=== PATIENT | male | born 1975 | race Caucasian/White ===

== ENCOUNTER 2018-03-31 09:22 | Inpatient (IN) | payer MEDICAID ==
[~2018-03-31] VITALS: Ht 170.2 cm; Wt 118.2 kg
[~2018-03-31 09:22] MED LIST: DIVA-78 PO; SULF1TAB42 PO
[2018-03-31 09:35] VITALS: BP 154/85
[2018-03-31] MEDS ORDERED: MAG HYDROX/AL HYDROX/SIMETH ES 30 ML SUSPENSION UDCUP PO PRN (10:30)
[2018-03-31] MEDS ORDERED: ZOLPIDEM TARTRATE 10 MG TABLET PO PRN (10:30)
[2018-03-31] MEDS ORDERED: LOPERAMIDE HCL 2 MG CAPSULE PO PRN (10:30)
[2018-03-31] MEDS ORDERED: CloNIDine HCL 0.1 MG TABLET PO PRN (10:45)
[2018-03-31] MEDS ORDERED: GuaiFENesin/D-METHORPHAN [SUGAR-FREE] 200-20MG/10 ML SYRUP UDCUP PO PRN (10:45)
[2018-03-31] MEDS ORDERED: ACETAMINOPHEN 325 MG TABLET PO PRN (10:45)
[2018-03-31] MEDS ORDERED: NICOTINE 14 MG/24 HOUR PATCH TD PRN (10:45)
[2018-03-31] MEDS ORDERED: PETROLATUM,WHITE 71 GM JELLY TP PRN (10:45)
[2018-03-31] MEDS ORDERED: PNEUMOCOCCAL VACCINE POLYVALENT 0.5 ML VIAL [PPSV23] IM ONE (10:45)
[2018-03-31] MEDS ORDERED: ONDANSETRON HCL 4 MG TABLET PO PRN (10:45)
[2018-03-31] MEDS ORDERED: MAGNESIUM HYDROXIDE SUSPENSION 30 ML UDCUP PO PRN (10:45)
[2018-03-31] MEDS ORDERED: DOCUSATE SODIUM 100 MG CAPSULE PO PRN (10:45)
[2018-03-31] MEDS ORDERED: ALBUTEROL SULFATE HFA 90 MCG/PUFF 8 GM INHALER IH PRN (10:45)
[2018-03-31 11:05] VITALS: BP 116/83
[2018-03-31 16:06] VITALS: BP 127/84
[2018-03-31] MEDS: LORazepam 2 MG TABLET PO PRN (16:55)
[2018-04-01 01:46] VITALS: BP 138/87
[2018-04-01 07:57] LABS: BASOPHILS % (AUTO) 0.7 % (0.0-2.0); EOSINOPHILS % (AUTO) 2.4 % (1.0-6.0); HEMATOCRIT 42.6 % (41-53); HEMOGLOBIN 15.2 g/dL (13.5-17.5); LYMPHOCYTES % (AUTO) 27.5 % (22.0-44.0); MEAN CORPUSCULAR HEMOGLOBIN 32.7 pg (26.0-34.0); MEAN CORPUSCULAR HGB CONC 35.6 G/dL (31.0-37.0); MEAN CORPUSCULAR VOLUME 92 fL (80-100); MONOCYTES # (AUTO) 0.8 K/uL (0.1-1.0); MONOCYTES % (AUTO) 10.8 % (2.0-9.0); NEUTROPHILS # (AUTO) 4.2 K/uL (1.8-7.7); NEUTROPHILS % (AUTO) 58.6 % (40.0-70.0); PLATELET COUNT (AUTO) 248 K/uL (150-450); RED BLOOD CELL COUNT(AUTO) 4.65 MIL/uL (4.50-5.90); RED CELL DISTRIBUTION WIDTH 13.7 % (11.5-14.5)
[2018-04-01 08:00] VITALS: BP 116/84
[2018-04-01 08:38] LABS: ANION GAP 4 mmol/L (8-16); CARBON DIOXIDE 29 mmol/L (22-29); CHLORIDE 104 mmol/L (98-107); CREATININE 0.85 mg/dL (0.60-1.30); GLUCOSE,RANDOM 87 mg/dL (70-110); SODIUM SERUM 137 mmol/L (136-145); UREA NITROGEN, BLOOD 14 mg/dL (7-18)
[2018-04-01 08:39] LABS: ALANINE AMINOTRANSFERASE 29 U/L (12-78); ALKALINE PHOSPHATASE 74 U/L (46-116); ASPARTATE AMINOTRANSFERASE 13 U/L (15-37); BILIRUBIN,TOTAL 0.6 mg/dL (0.1-1.0); CALCIUM, TOTAL 8.2 mg/dL (8.8-10.5); CHOL/HDL RATIO 3.7 (4.2-7.3); CHOLESTEROL 110 mg/dL (131-200); FREE T4 (FREE THYROXINE) 1.08 ng/dL (0.76-1.46); GLOMERULAR FILTR. RATE CALC > 60 mL/min (>60); HDL CHOLESTEROL 30 mg/dL (40-60); LDL CHOL (CALC.) 62 mg/dL (0-130); THYROID STIMULATING HORMONE 0.92 uIU/mL (0.36-3.74); TOTAL PROTEIN, SERUM 6.2 g/dL (6.4-8.2); TRIGLYCERIDES 90 mg/dL (15-150)
[2018-04-01 08:43] LABS: HEMOGLOBIN A1C 5.2 % (4.5-6.2)
[2018-04-01] MEDS ORDERED: ARIPiprazole 10 MG TABLET PO SCH (09:00)
[2018-04-01 16:15] VITALS: BP 122/89
[2018-04-01] MEDS: LORazepam 2 MG TABLET PO PRN (19:03)
[2018-04-02 06:11] VITALS: BP 128/88
[2018-04-02 08:13] VITALS: BP 113/69
[2018-04-02] MEDS: ARIPiprazole 15 MG TABLET PO SCH (08:55)
[2018-04-02] MEDS: LORazepam 2 MG TABLET PO PRN ×3 (08:55→21:28)
[2018-04-02 16:31] VITALS: BP 115/65
[2018-04-03 05:44] VITALS: BP 126/79
[2018-04-03 08:00] VITALS: BP 127/77
[2018-04-03] MEDS: ARIPiprazole 15 MG TABLET PO SCH (08:59)
[2018-04-03] MEDS ORDERED: ARIP10TA8 PO (12:29)
== END 2018-04-03 12:40 | disposition home or self-care (01) | DRG 750 ==
LOC: B2S 10:27 → B3A 11:47
PROVIDERS: ADMIT Psychiatry & Neurology Psychiatry; ATTEND Psychiatry & Neurology Psychiatry
DX: F25.0 Schizoaffective disorder, bipolar type (principal); F29 Unspecified psychosis not due to a substance or known physiological condition; B18.2 Chronic viral hepatitis C; F12.90 Cannabis use, unspecified, uncomplicated; R45.87 Impulsiveness; Z91.19 Patient's noncompliance with other medical treatment and regimen; Z91.5 Personal history of self-harm; J45.909 Unspecified asthma, uncomplicated; I10 Essential (primary) hypertension; Z59.0 Homelessness; Z88.6 Allergy status to analgesic agent; F17.200 Nicotine dependence, unspecified, uncomplicated
CPT/HCPCS: 83036; 84439; 84443; 90732

== ENCOUNTER 2018-04-07 10:47 | Inpatient (IN) | payer MEDICAID ==
[~2018-04-07] VITALS: Ht 170.2 cm; Wt 117.9 kg
[~2018-04-07 10:47] MED LIST changes: +ARIP10TA8 PO; -DIVA-78 PO; -SULF1TAB42 PO
[2018-04-07 11:48] VITALS: BP 116/77
[2018-04-07 12:21] VITALS: BP 129/76
[2018-04-07] MEDS: LORazepam 2 MG TABLET PO PRN (13:31)
[2018-04-07] MEDS: HALOPERIDOL 5 MG TABLET PO PRN (13:31)
[2018-04-07] MEDS ORDERED: MAG HYDROX/AL HYDROX/SIMETH ES 30 ML SUSPENSION UDCUP PO PRN (15:45)
[2018-04-07] MEDS ORDERED: GuaiFENesin/D-METHORPHAN [SUGAR-FREE] 200-20MG/10 ML SYRUP UDCUP PO PRN (15:45)
[2018-04-07] MEDS ORDERED: NICOTINE 14 MG/24 HOUR PATCH TD PRN (15:45)
[2018-04-07] MEDS ORDERED: LOPERAMIDE HCL 2 MG CAPSULE PO PRN (15:45)
[2018-04-07] MEDS ORDERED: PETROLATUM,WHITE 71 GM JELLY TP PRN (15:45)
[2018-04-07] MEDS ORDERED: ALBUTEROL SULFATE HFA 90 MCG/PUFF 8 GM INHALER IH PRN (15:45)
[2018-04-07] MEDS ORDERED: ONDANSETRON HCL 4 MG TABLET PO PRN (15:45)
[2018-04-07] MEDS ORDERED: CloNIDine HCL 0.1 MG TABLET PO PRN (15:45)
[2018-04-07] MEDS ORDERED: ACETAMINOPHEN 325 MG TABLET PO PRN (15:45)
[2018-04-07] MEDS ORDERED: DOCUSATE SODIUM 100 MG CAPSULE PO PRN (15:45)
[2018-04-07] MEDS ORDERED: MAGNESIUM HYDROXIDE SUSPENSION 30 ML UDCUP PO PRN (15:45)
[2018-04-07 16:00] VITALS: BP 107/66
[2018-04-08 00:19] VITALS: BP 139/89
[2018-04-08] MEDS: LORazepam 2 MG TABLET PO PRN ×3 (00:24→14:28)
[2018-04-08] MEDS: ZOLPIDEM TARTRATE 10 MG TABLET PO PRN ×2 (00:24→20:39)
[2018-04-08 07:55] LABS: BASOPHILS % (AUTO) 0.7 % (0.0-2.0); EOSINOPHILS % (AUTO) 2.5 % (1.0-6.0); HEMATOCRIT 44.1 % (41-53); HEMOGLOBIN 15.9 g/dL (13.5-17.5); LYMPHOCYTES # (AUTO) 2.1 K/uL (1.0-4.8); LYMPHOCYTES % (AUTO) 39.9 % (22.0-44.0); MEAN CORPUSCULAR HEMOGLOBIN 32.9 pg (26.0-34.0); MEAN CORPUSCULAR HGB CONC 35.9 G/dL (31.0-37.0); MEAN CORPUSCULAR VOLUME 92 fL (80-100); MONOCYTES # (AUTO) 0.5 K/uL (0.1-1.0); MONOCYTES % (AUTO) 10.2 % (2.0-9.0); NEUTROPHILS # (AUTO) 2.5 K/uL (1.8-7.7); NEUTROPHILS % (AUTO) 46.7 % (40.0-70.0); PLATELET COUNT (AUTO) 176 K/uL (150-450); RED BLOOD CELL COUNT(AUTO) 4.82 MIL/uL (4.50-5.90); RED CELL DISTRIBUTION WIDTH 13.6 % (11.5-14.5)
[2018-04-08 08:02] VITALS: BP 132/78
[2018-04-08 08:38] LABS: AMPHET/METH SCREEN,URINE POSITIVE (NEGATIVE); BARBITURATE SCREEN, URINE NEGATIVE (NEGATIVE); BENZODIAZEPINES SCREEN,URINE NEGATIVE (NEGATIVE); CANNABINOID SCREEN,URINE POSITIVE (NEGATIVE); COCAINE SCREEN,URINE NEGATIVE (NEGATIVE); METHADONE SCREEN, URINE NEGATIVE (NEGATIVE); OPIATE SCREEN,URINE POSITIVE (NEGATIVE)
[2018-04-08 08:41] LABS: PHENCYCLIDINE SCREEN,URINE NEGATIVE (NEGATIVE)
[2018-04-08] MEDS: HALOPERIDOL 5 MG TABLET PO PRN ×2 (08:42→14:28)
[2018-04-08] MEDS: ARIPiprazole 15 MG TABLET PO SCH (08:42)
[2018-04-08 08:52] LABS: ALANINE AMINOTRANSFERASE 27 U/L (12-78); ALBUMIN 3.1 g/dL (3.4-5.0); ALKALINE PHOSPHATASE 62 U/L (46-116); ANION GAP 6 mmol/L (8-16); ASPARTATE AMINOTRANSFERASE 12 U/L (15-37); BILIRUBIN,TOTAL 0.6 mg/dL (0.1-1.0); CALCIUM, TOTAL 8.1 mg/dL (8.8-10.5); CARBON DIOXIDE 29 mmol/L (22-29); CHLORIDE 103 mmol/L (98-107); CREATININE 0.87 mg/dL (0.60-1.30); FREE T4 (FREE THYROXINE) 1.05 ng/dL (0.76-1.46); GLOMERULAR FILTR. RATE CALC > 60 mL/min (>60); GLUCOSE,RANDOM 86 mg/dL (70-110); HDL CHOLESTEROL 30 mg/dL (40-60); SODIUM SERUM 138 mmol/L (136-145); TOTAL PROTEIN, SERUM 6.2 g/dL (6.4-8.2); TRIGLYCERIDES 87 mg/dL (15-150); UREA NITROGEN, BLOOD 14 mg/dL (7-18)
[2018-04-08 08:55] LABS: APPEARANCE,URINE TURBID (CLEAR); GLUCOSE, URINE (UA) NEGATIVE (NEGATIVE); KETONES,URINE 40 mg/dL (NEGATIVE); LEUKOCYTE ESTERASE ,URINE NEGATIVE (NEGATIVE); NITRATE,URINE NEGATIVE (NEGATIVE); OCCULT BLOOD,URINE MODERATE (NEGATIVE); PH,URINE 5.5 (5.0-8.0); PROTEIN,URINE POS 1+ (NEGATIVE)
[2018-04-08 08:56] LABS: BILIRUBIN,URINE PRELIM. POSITIVE (NEGATIVE)
[2018-04-08] MEDS ORDERED: ARIPiprazole 15 MG TABLET PO SCH (09:00)
[2018-04-08 09:03] LABS: HEMOGLOBIN A1C 5.1 % (4.5-6.2)
[2018-04-08 09:05] LABS: CHOL/HDL RATIO 3.9 (4.2-7.3); CHOLESTEROL 116 mg/dL (131-200); LDL CHOL (CALC.) 69 mg/dL (0-130)
[2018-04-08 09:07] LABS: AMORPHOUS SEDIMENT,UR Many /LPF (None Seen); BACTERIA,URINE Few /HPF (None Seen); CALCIUM OXALATE CRYSTALS,UR Few /LPF (None Seen); RBC,URINE None Seen /HPF (0-2); SQUAMOUS EPITHELIAL CELL,UR Rare /LPF (None Seen); WBC,URINE None Seen /HPF (0-5)
[2018-04-08 16:01] VITALS: BP 109/64
[2018-04-09] MEDS: HALOPERIDOL 5 MG TABLET PO PRN ×3 (00:01→17:39)
[2018-04-09] MEDS: LORazepam 2 MG TABLET PO PRN ×3 (00:02→17:39)
[2018-04-09 00:05] VITALS: BP 137/94
[2018-04-09 08:00] VITALS: BP 114/80
[2018-04-09] MEDS: ARIPiprazole 15 MG TABLET PO SCH (08:22)
[2018-04-09 16:07] VITALS: BP 124/83
[2018-04-10 01:31] VITALS: BP 134/78
[2018-04-10 08:00] VITALS: BP 112/66
[2018-04-10] MEDS: ARIPiprazole 15 MG TABLET PO SCH (08:14)
[2018-04-10] MEDS: LORazepam 2 MG TABLET PO PRN ×2 (10:05→16:48)
[2018-04-10] MEDS ORDERED: ARIP15TA2 PO (11:50)
[2018-04-10] MEDS: BENZTROPINE MESYLATE 2 MG TABLET PO SCH ×2 (12:13→16:48)
[2018-04-10 15:57] VITALS: BP 122/72
[2018-04-10 19:22] VITALS: BP 122/72
[2018-04-10] MEDS: ZOLPIDEM TARTRATE 10 MG TABLET PO PRN (20:39)
[2018-04-10] MEDS ORDERED: MAG HYDROX/AL HYDROX/SIMETH 30 ML SUSP UDCUP PO PRN (21:30)
[2018-04-11 00:23] VITALS: BP 137/88
[2018-04-11 02:29] VITALS: BP 122/84
[2018-04-11] MEDS: TraMADol HCL 50 MG TABLET PO PRN ×2 (03:03→11:13)
[2018-04-11 08:04] VITALS: BP 144/91
[2018-04-11] MEDS: BENZTROPINE MESYLATE 2 MG TABLET PO SCH ×2 (08:49→16:16)
[2018-04-11] MEDS: LORazepam 2 MG TABLET PO PRN ×2 (08:49→16:16)
[2018-04-11] MEDS: HALOPERIDOL 5 MG TABLET PO PRN (08:49)
[2018-04-11] MEDS: ARIPiprazole 15 MG TABLET PO SCH (08:49)
[2018-04-11 09:14] LABS: AMPHET/METH SCREEN,URINE NEGATIVE (NEGATIVE); BARBITURATE SCREEN, URINE NEGATIVE (NEGATIVE); BENZODIAZEPINES SCREEN,URINE NEGATIVE (NEGATIVE); CANNABINOID SCREEN,URINE NEGATIVE (NEGATIVE); COCAINE SCREEN,URINE NEGATIVE (NEGATIVE); METHADONE SCREEN, URINE NEGATIVE (NEGATIVE); OPIATE SCREEN,URINE NEGATIVE (NEGATIVE); PHENCYCLIDINE SCREEN,URINE NEGATIVE (NEGATIVE)
[2018-04-11 09:22] LABS: APPEARANCE,URINE CLOUDY (CLEAR); BILIRUBIN,URINE NEGATIVE (NEGATIVE); GLUCOSE, URINE (UA) NEGATIVE (NEGATIVE); KETONES,URINE NEGATIVE (NEGATIVE); LEUKOCYTE ESTERASE ,URINE MODERATE (NEGATIVE); NITRATE,URINE NEGATIVE (NEGATIVE); OCCULT BLOOD,URINE MODERATE (NEGATIVE); PH,URINE 5.5 (5.0-8.0); PROTEIN,URINE NEGATIVE (NEGATIVE); UROBILINOGEN,URINE 0.2 mg/dL (<=1.0)
[2018-04-11 09:24] LABS: BACTERIA,URINE Few /HPF (None Seen); SQUAMOUS EPITHELIAL CELL,UR Few /LPF (None Seen)
[2018-04-11 16:00] VITALS: BP 115/79
[2018-04-11] MEDS: ZOLPIDEM TARTRATE 10 MG TABLET PO PRN (20:28)
[2018-04-12 01:35] VITALS: BP 111/76
[2018-04-12] MEDS: TraMADol HCL 50 MG TABLET PO PRN ×2 (02:38→11:59)
[2018-04-12 08:15] VITALS: BP 125/76
[2018-04-12 08:31] LABS: BASOPHILS % (AUTO) 0.6 % (0.0-2.0); EOSINOPHILS % (AUTO) 2.9 % (1.0-6.0); HEMATOCRIT 49.2 % (41-53); HEMOGLOBIN 17.1 g/dL (13.5-17.5); LYMPHOCYTES # (AUTO) 2.5 K/uL (1.0-4.8); LYMPHOCYTES % (AUTO) 35.7 % (22.0-44.0); MEAN CORPUSCULAR HEMOGLOBIN 32.6 pg (26.0-34.0); MEAN CORPUSCULAR HGB CONC 34.8 G/dL (31.0-37.0); MEAN CORPUSCULAR VOLUME 94 fL (80-100); MONOCYTES # (AUTO) 0.5 K/uL (0.1-1.0); MONOCYTES % (AUTO) 6.8 % (2.0-9.0); NEUTROPHILS # (AUTO) 3.7 K/uL (1.8-7.7); PLATELET COUNT (AUTO) 196 K/uL (150-450); RED BLOOD CELL COUNT(AUTO) 5.25 MIL/uL (4.50-5.90); RED CELL DISTRIBUTION WIDTH 13.6 % (11.5-14.5)
[2018-04-12 08:53] LABS: ALANINE AMINOTRANSFERASE 29 U/L (12-78); ALBUMIN 3.5 g/dL (3.4-5.0); ALKALINE PHOSPHATASE 67 U/L (46-116); ANION GAP 7 mmol/L (8-16); ASPARTATE AMINOTRANSFERASE 16 U/L (15-37); BILIRUBIN,TOTAL 0.6 mg/dL (0.1-1.0); CALCIUM, TOTAL 8.3 mg/dL (8.8-10.5); CARBON DIOXIDE 26 mmol/L (22-29); CHLORIDE 101 mmol/L (98-107); CREATININE 0.87 mg/dL (0.60-1.30); GLOMERULAR FILTR. RATE CALC > 60 mL/min (>60); GLUCOSE,RANDOM 93 mg/dL (70-110); SODIUM SERUM 134 mmol/L (136-145); TOTAL PROTEIN, SERUM 7.2 g/dL (6.4-8.2); UREA NITROGEN, BLOOD 16 mg/dL (7-18)
[2018-04-12] MEDS: BENZTROPINE MESYLATE 2 MG TABLET PO SCH ×2 (09:46→16:20)
[2018-04-12] MEDS: ARIPiprazole 15 MG TABLET PO SCH (09:46)
[2018-04-12 16:19] VITALS: BP 116/66
[2018-04-12] MEDS: LORazepam 2 MG TABLET PO PRN (16:20)
[2018-04-12] MEDS: ZOLPIDEM TARTRATE 10 MG TABLET PO PRN (20:29)
[2018-04-13 00:45] VITALS: BP 115/74
[2018-04-13] MEDS: TraMADol HCL 50 MG TABLET PO PRN ×2 (00:45→09:35)
[2018-04-13 01:45] VITALS: BP 110/74
[2018-04-13 08:02] VITALS: BP 112/70
[2018-04-13] MEDS ORDERED: BENZ2TAB10 PO (08:22)
[2018-04-13] MEDS: ARIPiprazole 15 MG TABLET PO SCH (08:32)
[2018-04-13] MEDS: BENZTROPINE MESYLATE 2 MG TABLET PO SCH (08:32)
[2018-04-13 08:55] LABS: ANION GAP 7 mmol/L (8-16); CALCIUM, TOTAL 8.5 mg/dL (8.8-10.5); CARBON DIOXIDE 26 mmol/L (22-29); CHLORIDE 101 mmol/L (98-107); CREATININE 0.82 mg/dL (0.60-1.30); GLOMERULAR FILTR. RATE CALC > 60 mL/min (>60); GLUCOSE,RANDOM 90 mg/dL (70-110); POTASSIUM 4.4 mmol/L (3.5-5.1); SODIUM SERUM 134 mmol/L (136-145); UREA NITROGEN, BLOOD 13 mg/dL (7-18)
[2018-04-13 09:35] VITALS: BP 114/76
[2018-04-13 10:35] VITALS: BP 112/70
== END 2018-04-13 12:15 | disposition home or self-care (01) | DRG 750 ==
LOC: B3A 11:57
PROVIDERS: ADMIT Psychiatry & Neurology Psychiatry; ATTEND Psychiatry & Neurology Psychiatry
DX: F25.0 Schizoaffective disorder, bipolar type (principal); G40.909 Epilepsy, unspecified, not intractable, without status epilepticus; R45.851 Suicidal ideations; B18.2 Chronic viral hepatitis C; E03.9 Hypothyroidism, unspecified; F17.200 Nicotine dependence, unspecified, uncomplicated; F41.9 Anxiety disorder, unspecified; F12.90 Cannabis use, unspecified, uncomplicated; N39.0 Urinary tract infection, site not specified; J45.909 Unspecified asthma, uncomplicated; I10 Essential (primary) hypertension; F19.10 Other psychoactive substance abuse, uncomplicated; Z91.19 Patient's noncompliance with other medical treatment and regimen; Z91.5 Personal history of self-harm; Z71.6 Tobacco abuse counseling; Z71.51 Drug abuse counseling and surveillance of drug abuser; Z59.0 Homelessness; Z88.5 Allergy status to narcotic agent; Z88.8 Allergy status to other drugs, medicaments and biological substances; Z88.6 Allergy status to analgesic agent
CPT/HCPCS: 80307; 83036; 84439; 84443; 87081; 87086; Q0162

== ENCOUNTER 2018-08-15 20:28 | Emergency (ER) | payer MEDICAID ==
[~2018-08-15] VITALS: Ht 170.2 cm; Wt 136.4 kg
[~2018-08-15 20:28] MED LIST changes: -ARIP10TA8 PO; +ARIP15TA2 PO; +BENZ2TAB10 PO
[2018-08-15] MEDS ORDERED: [UNRECOGNIZED DRUG - OTHER] IM (20:54)
[2018-08-15] MEDS ORDERED: TEMA7.5C17 PO (20:54)
[2018-08-15 21:29] LABS: BASOPHILS % (AUTO) 0.6 % (0.0-2.0); EOSINOPHILS % (AUTO) 0.7 % (1.0-6.0); HEMATOCRIT 49.8 % (41-53); HEMOGLOBIN 17.5 g/dL (13.5-17.5); LYMPHOCYTES # (AUTO) 2.9 K/uL (1.0-4.8); LYMPHOCYTES % (AUTO) 21.1 % (22.0-44.0); MEAN CORPUSCULAR HGB CONC 35.2 G/dL (31.0-37.0); MEAN CORPUSCULAR VOLUME 91 fL (80-100); MONOCYTES # (AUTO) 0.8 K/uL (0.1-1.0); MONOCYTES % (AUTO) 5.5 % (2.0-9.0); NEUTROPHILS # (AUTO) 10.1 K/uL (1.8-7.7); NEUTROPHILS % (AUTO) 72.1 % (40.0-70.0); PLATELET COUNT (AUTO) 232 K/uL (150-450); RED BLOOD CELL COUNT(AUTO) 5.48 MIL/uL (4.50-5.90); RED CELL DISTRIBUTION WIDTH 13.7 % (11.5-14.5)
[2018-08-15 21:51] LABS: ANION GAP 12 mmol/L (8-16); CALCIUM, TOTAL 9.2 mg/dL (8.8-10.5); CARBON DIOXIDE 24 mmol/L (22-29); CHLORIDE 104 mmol/L (98-107); CREATININE 0.91 mg/dL (0.60-1.30); GLOMERULAR FILTR. RATE CALC > 60 mL/min (>60); GLUCOSE,RANDOM 124 mg/dL (70-110); POTASSIUM 3.8 mmol/L (3.5-5.1); SODIUM SERUM 140 mmol/L (136-145); UREA NITROGEN, BLOOD 16 mg/dL (7-18)
[2018-08-15 21:54] LABS: ALANINE AMINOTRANSFERASE 33 U/L (12-78); ALKALINE PHOSPHATASE 77 U/L (46-116); ASPARTATE AMINOTRANSFERASE 19 U/L (15-37); BILIRUBIN,TOTAL 0.9 mg/dL (0.1-1.0)
[2018-08-15 23:28] LABS: APPEARANCE,URINE CLEAR (CLEAR); BILIRUBIN,URINE PRELIM. POSITIVE (NEGATIVE); GLUCOSE, URINE (UA) NEGATIVE (NEGATIVE); KETONES,URINE TRACE mg/dL (NEGATIVE); LEUKOCYTE ESTERASE ,URINE NEGATIVE (NEGATIVE); NITRATE,URINE NEGATIVE (NEGATIVE); OCCULT BLOOD,URINE LARGE (NEGATIVE); PH,URINE 5.5 (5.0-8.0); PROTEIN,URINE SEE CONFIRM (NEGATIVE); UROBILINOGEN,URINE 0.2 mg/dL (<=1.0)
[2018-08-15 23:44] LABS: BACTERIA,URINE Rare /HPF (None Seen); MUCUS,URINE Moderate LPF (None Seen); SQUAMOUS EPITHELIAL CELL,UR Rare /LPF (None Seen); SULFOSALICYLIC ACID,URINE 1+ (Negative); WBC,URINE 0-2 /HPF (0-5)
[2018-08-16] MEDS ORDERED: ONDANSETRON HCL 4 MG/2 ML VIAL IVP ONE (01:00)
[2018-08-16] MEDS ORDERED: SODIUM CHLORIDE 0.9% 1,000 ML IV ONE (01:00)
[2018-08-16] MEDS ORDERED: DiphenhydrAMINE HCL 50 MG/ML VIAL IVP ONE (02:45)
[2018-08-16] MEDS ORDERED: METHOCARBAMOL 100 MG/ML 10 ML VIAL IVP ONE (02:45)
[2018-08-16] MEDS ORDERED: KETOROLAC TROMETHAMINE 30 MG/ML VIAL IVP ONE (02:45)
[2018-08-16] MEDS ORDERED: LORazepam 2 MG/ML VIAL IVP ONE (02:45)
[2018-08-16 04:00] VITALS: BP 145/76
== END 2018-08-16 04:18 | disposition home or self-care (01) ==
LOC: EMS 20:29
DX: N20.9 Urinary calculus, unspecified (principal); F17.210 Nicotine dependence, cigarettes, uncomplicated; F11.90 Opioid use, unspecified, uncomplicated; F41.9 Anxiety disorder, unspecified; F32.9 Major depressive disorder, single episode, unspecified; Z79.899 Other long term (current) drug therapy; Z88.5 Allergy status to narcotic agent; Z88.6 Allergy status to analgesic agent; Z88.8 Allergy status to other drugs, medicaments and biological substances
CPT/HCPCS: 36415; 74176; 80053; 81001; 85025; 96374; 96375; 99284; 99406; J1200; J1885; J2060; J2405; J2800; J7030

== ENCOUNTER 2018-08-25 16:12 | Inpatient (IN) | payer MEDICAID ==
[~2018-08-25] VITALS: Ht 170.2 cm; Wt 136.8 kg
[~2018-08-25 16:12] MED LIST changes: +TEMA7.5C17 PO; +[UNRECOGNIZED DRUG - OTHER] IM
[2018-08-25 17:04] VITALS: BP 134/78
[2018-08-25] MEDS ORDERED: HALOPERIDOL 5 MG TABLET PO PRN (17:15)
[2018-08-25 17:44] VITALS: BP 129/89
[2018-08-25] MEDS ORDERED: LOPERAMIDE HCL 2 MG CAPSULE PO PRN (19:00)
[2018-08-25] MEDS ORDERED: ACETAMINOPHEN 325 MG TABLET PO PRN (19:00)
[2018-08-25] MEDS ORDERED: DOCUSATE SODIUM 100 MG CAPSULE PO PRN (19:00)
[2018-08-25] MEDS ORDERED: IBUPROFEN 400 MG TABLET PO PRN (19:00)
[2018-08-25] MEDS ORDERED: NICOTINE 14 MG/24 HOUR PATCH TD PRN (19:00)
[2018-08-25] MEDS ORDERED: MAG HYDROX/AL HYDROX/SIMETH ES 30 ML SUSPENSION UDCUP PO PRN (19:00)
[2018-08-25] MEDS ORDERED: GuaiFENesin/D-METHORPHAN [SUGAR-FREE] 200-20MG/10 ML SYRUP UDCUP PO PRN (19:00)
[2018-08-25] MEDS ORDERED: MAGNESIUM HYDROXIDE SUSPENSION 30 ML UDCUP PO PRN (19:00)
[2018-08-25] MEDS ORDERED: ONDANSETRON HCL 4 MG TABLET PO PRN (19:00)
[2018-08-25] MEDS ORDERED: CloNIDine HCL 0.1 MG TABLET PO PRN (19:00)
[2018-08-25] MEDS ORDERED: PETROLATUM,WHITE 28 GM JELLY TP PRN (19:00)
[2018-08-25] MEDS ORDERED: ALBUTEROL SULFATE HFA 90 MCG/PUFF 8 GM INHALER IH PRN (19:00)
[2018-08-25] MEDS ORDERED: PNEUMOCOCCAL VACCINE POLYVALENT 0.5 ML VIAL [PPSV23] IM ONE (20:45)
[2018-08-25] MEDS: ZOLPIDEM TARTRATE 10 MG TABLET PO PRN (21:14)
[2018-08-26 00:32] VITALS: BP 122/86
[2018-08-26 08:28] VITALS: BP 114/73
[2018-08-26 09:03] LABS: BASOPHILS % (AUTO) 0.7 % (0.0-2.0); EOSINOPHILS % (AUTO) 5.5 % (1.0-6.0); HEMATOCRIT 46.6 % (41-53); HEMOGLOBIN 16.2 g/dL (13.5-17.5); LYMPHOCYTES # (AUTO) 2.1 K/uL (1.0-4.8); LYMPHOCYTES % (AUTO) 42.5 % (22.0-44.0); MEAN CORPUSCULAR HEMOGLOBIN 31.9 pg (26.0-34.0); MEAN CORPUSCULAR HGB CONC 34.7 G/dL (31.0-37.0); MEAN CORPUSCULAR VOLUME 92 fL (80-100); MONOCYTES # (AUTO) 0.7 K/uL (0.1-1.0); MONOCYTES % (AUTO) 14.2 % (2.0-9.0); NEUTROPHILS # (AUTO) 1.8 K/uL (1.8-7.7); NEUTROPHILS % (AUTO) 37.1 % (40.0-70.0); PLATELET COUNT (AUTO) 204 K/uL (150-450); RED BLOOD CELL COUNT(AUTO) 5.07 MIL/uL (4.50-5.90); RED CELL DISTRIBUTION WIDTH 13.5 % (11.5-14.5)
[2018-08-26] MEDS: NYSTATIN 15 GM POWDER BOTTLE TP SCH ×2 (09:27→16:09)
[2018-08-26 09:38] LABS: AMPHET/METH SCREEN,URINE POSITIVE (NEGATIVE); BARBITURATE SCREEN, URINE NEGATIVE (NEGATIVE); BENZODIAZEPINES SCREEN,URINE NEGATIVE (NEGATIVE); CANNABINOID SCREEN,URINE POSITIVE (NEGATIVE); COCAINE SCREEN,URINE NEGATIVE (NEGATIVE); METHADONE SCREEN, URINE NEGATIVE (NEGATIVE); OPIATE SCREEN,URINE POSITIVE (NEGATIVE); PHENCYCLIDINE SCREEN,URINE NEGATIVE (NEGATIVE)
[2018-08-26 09:39] LABS: HEMOGLOBIN A1C 4.9 % (4.5-6.2)
[2018-08-26 09:46] LABS: APPEARANCE,URINE TURBID (CLEAR); GLUCOSE, URINE (UA) NEGATIVE (NEGATIVE); KETONES,URINE 40 mg/dL (NEGATIVE); LEUKOCYTE ESTERASE ,URINE NEGATIVE (NEGATIVE); NITRATE,URINE NEGATIVE (NEGATIVE); OCCULT BLOOD,URINE MODERATE (NEGATIVE); PH,URINE 6.5 (5.0-8.0); PROTEIN,URINE POS 1+ (NEGATIVE)
[2018-08-26 09:49] LABS: ALANINE AMINOTRANSFERASE 38 U/L (12-78); ALBUMIN 3.1 g/dL (3.4-5.0); ALKALINE PHOSPHATASE 67 U/L (46-116); ANION GAP 8 mmol/L (8-16); ASPARTATE AMINOTRANSFERASE 25 U/L (15-37); BILIRUBIN,TOTAL 0.6 mg/dL (0.1-1.0); CALCIUM, TOTAL 8.7 mg/dL (8.8-10.5); CARBON DIOXIDE 29 mmol/L (22-29); CHLORIDE 105 mmol/L (98-107); CHOL/HDL RATIO 6.1 (4.2-7.3); CHOLESTEROL 140 mg/dL (131-200); CREATININE 0.96 mg/dL (0.60-1.30); FREE T4 (FREE THYROXINE) 1.19 ng/dL (0.76-1.46); GLOMERULAR FILTR. RATE CALC > 60 mL/min (>60); GLUCOSE,RANDOM 92 mg/dL (70-110); HDL CHOLESTEROL 23 mg/dL (40-60); LDL CHOL (CALC.) 92 mg/dL (0-130); POTASSIUM 3.9 mmol/L (3.5-5.1); SODIUM SERUM 142 mmol/L (136-145); THYROID STIMULATING HORMONE 1.12 uIU/mL (0.36-3.74); TOTAL PROTEIN, SERUM 6.3 g/dL (6.4-8.2); TRIGLYCERIDES 123 mg/dL (15-150); UREA NITROGEN, BLOOD 14 mg/dL (7-18)
[2018-08-26 09:53] LABS: BILIRUBIN,URINE PRELIM. POSITIVE (NEGATIVE)
[2018-08-26 10:06] LABS: BACTERIA,URINE Few /HPF (None Seen); SQUAMOUS EPITHELIAL CELL,UR Few /LPF (None Seen); WBC,URINE 0-2 /HPF (0-5)
[2018-08-26] MEDS: SERTRALINE HCL 50 MG TABLET PO SCH (11:01)
[2018-08-26] MEDS: LORazepam 2 MG TABLET PO PRN (11:07)
[2018-08-26] MEDS: BENZTROPINE MESYLATE 2 MG TABLET PO SCH (16:08)
[2018-08-26 16:26] VITALS: BP 120/76
[2018-08-27 02:48] VITALS: BP 125/72
[2018-08-27] MEDS: LORazepam 2 MG TABLET PO PRN ×2 (02:49→16:22)
[2018-08-27] MEDS: SERTRALINE HCL 50 MG TABLET PO SCH (08:39)
[2018-08-27] MEDS: ARIPiprazole 15 MG TABLET PO SCH (08:39)
[2018-08-27] MEDS: BENZTROPINE MESYLATE 2 MG TABLET PO SCH ×2 (08:39→16:22)
[2018-08-27] MEDS: NYSTATIN 15 GM POWDER BOTTLE TP SCH ×2 (08:43→16:23)
[2018-08-27 09:10] VITALS: BP 106/78
[2018-08-27 16:29] VITALS: BP 113/70
[2018-08-28 06:19] VITALS: BP 110/72
[2018-08-28 08:11] VITALS: BP 122/78
[2018-08-28] MEDS: ARIPiprazole 15 MG TABLET PO SCH (08:17)
[2018-08-28] MEDS: SERTRALINE HCL 50 MG TABLET PO SCH (08:17)
[2018-08-28] MEDS: BENZTROPINE MESYLATE 2 MG TABLET PO SCH ×2 (08:17→16:08)
[2018-08-28] MEDS: NYSTATIN 15 GM POWDER BOTTLE TP SCH ×2 (09:30→16:09)
[2018-08-28] MEDS: LORazepam 2 MG TABLET PO PRN (14:40)
[2018-08-28 16:37] VITALS: BP 126/77
[2018-08-29 00:10] VITALS: BP 120/81
[2018-08-29 08:33] VITALS: BP 110/74
[2018-08-29] MEDS: SERTRALINE HCL 50 MG TABLET PO SCH (09:21)
[2018-08-29] MEDS: ARIPiprazole 15 MG TABLET PO SCH (09:21)
[2018-08-29] MEDS: BENZTROPINE MESYLATE 2 MG TABLET PO SCH ×2 (09:21→16:40)
[2018-08-29] MEDS: NYSTATIN 15 GM POWDER BOTTLE TP SCH ×2 (09:41→16:40)
[2018-08-29] MEDS: LORazepam 2 MG TABLET PO PRN (11:52)
[2018-08-29 17:07] VITALS: BP 109/70
[2018-08-30 06:40] VITALS: BP 106/68
[2018-08-30] MEDS: BENZTROPINE MESYLATE 2 MG TABLET PO SCH ×2 (08:19→17:12)
[2018-08-30] MEDS: NYSTATIN 15 GM POWDER BOTTLE TP SCH ×2 (08:20→17:12)
[2018-08-30 08:38] VITALS: BP 107/68
[2018-08-30] MEDS ORDERED: SERTRALINE HCL 100 MG TABLET PO SCH (09:00)
[2018-08-30] MEDS ORDERED: ARIPiprazole 10 MG TABLET PO SCH (09:00)
[2018-08-30 16:42] VITALS: BP 120/78
[2018-08-30] MEDS: LORazepam 2 MG TABLET PO PRN (22:08)
[2018-08-31 06:06] VITALS: BP 116/70
[2018-08-31 08:58] VITALS: BP 118/75
[2018-08-31] MEDS: BENZTROPINE MESYLATE 2 MG TABLET PO SCH ×2 (09:51→16:27)
[2018-08-31] MEDS: NYSTATIN 15 GM POWDER BOTTLE TP SCH ×2 (09:51→16:28)
[2018-08-31] MEDS: SERTRALINE HCL 100 MG TABLET PO SCH (09:52)
[2018-08-31] MEDS: ARIPiprazole 15 MG TABLET PO SCH (09:52)
[2018-08-31 16:02] VITALS: BP 121/74
[2018-08-31] MEDS: LORazepam 2 MG TABLET PO PRN (21:13)
[2018-09-01 02:30] VITALS: BP 110/75
[2018-09-01] MEDS: SERTRALINE HCL 100 MG TABLET PO SCH (09:00)
[2018-09-01] MEDS: NYSTATIN 15 GM POWDER BOTTLE TP SCH ×2 (09:29→16:51)
[2018-09-01] MEDS: ARIPiprazole 15 MG TABLET PO SCH (09:29)
[2018-09-01] MEDS: BENZTROPINE MESYLATE 2 MG TABLET PO SCH ×2 (09:29→16:51)
[2018-09-01 09:39] VITALS: BP 115/74
[2018-09-01 18:57] VITALS: BP 122/73
[2018-09-01] MEDS: LORazepam 2 MG TABLET PO PRN (19:36)
[2018-09-01] MEDS: ZOLPIDEM TARTRATE 10 MG TABLET PO PRN (20:58)
[2018-09-02 06:00] VITALS: BP 95/60
[2018-09-02] MEDS: ARIPiprazole 15 MG TABLET PO SCH (08:23)
[2018-09-02] MEDS: SERTRALINE HCL 100 MG TABLET PO SCH (08:23)
[2018-09-02] MEDS: NYSTATIN 15 GM POWDER BOTTLE TP SCH ×2 (08:23→16:25)
[2018-09-02] MEDS: BENZTROPINE MESYLATE 2 MG TABLET PO SCH ×2 (08:23→16:25)
[2018-09-02 09:01] VITALS: BP 105/71
[2018-09-02 16:19] VITALS: BP 118/74
[2018-09-02] MEDS: LORazepam 2 MG TABLET PO PRN (19:12)
[2018-09-02] MEDS: ZOLPIDEM TARTRATE 10 MG TABLET PO PRN (22:04)
[2018-09-03 00:11] VITALS: BP 111/74
[2018-09-03] MEDS: ARIPiprazole 15 MG TABLET PO SCH (08:12)
[2018-09-03] MEDS: SERTRALINE HCL 100 MG TABLET PO SCH (08:13)
[2018-09-03] MEDS: BENZTROPINE MESYLATE 2 MG TABLET PO SCH ×2 (08:13→16:28)
[2018-09-03] MEDS: NYSTATIN 15 GM POWDER BOTTLE TP SCH ×2 (08:13→16:29)
[2018-09-03 08:21] VITALS: BP 116/71
[2018-09-03 16:09] VITALS: BP 118/74
[2018-09-03] MEDS: LORazepam 2 MG TABLET PO PRN (16:28)
[2018-09-04 01:04] VITALS: BP 120/72
[2018-09-04 08:24] VITALS: BP 124/70
[2018-09-04] MEDS: ARIPiprazole 15 MG TABLET PO SCH (09:01)
[2018-09-04] MEDS: SERTRALINE HCL 100 MG TABLET PO SCH (09:01)
[2018-09-04] MEDS: NYSTATIN 15 GM POWDER BOTTLE TP SCH ×2 (09:01→16:39)
[2018-09-04] MEDS: BENZTROPINE MESYLATE 2 MG TABLET PO SCH ×2 (09:01→16:38)
[2018-09-04 16:28] VITALS: BP 116/72
[2018-09-04] MEDS: ZOLPIDEM TARTRATE 10 MG TABLET PO PRN (21:04)
[2018-09-05 00:50] VITALS: BP 120/69
[2018-09-05] MEDS: BENZTROPINE MESYLATE 2 MG TABLET PO SCH ×2 (08:05→16:20)
[2018-09-05] MEDS: SERTRALINE HCL 100 MG TABLET PO SCH (08:05)
[2018-09-05] MEDS: ARIPiprazole 15 MG TABLET PO SCH (08:05)
[2018-09-05] MEDS: NYSTATIN 15 GM POWDER BOTTLE TP SCH ×2 (08:06→16:42)
[2018-09-05 08:20] VITALS: BP 121/73
[2018-09-05] MEDS: LORazepam 2 MG TABLET PO PRN (14:32)
[2018-09-05 16:00] VITALS: BP 117/76
[2018-09-05] MEDS: ZOLPIDEM TARTRATE 10 MG TABLET PO PRN (20:21)
[2018-09-06 06:23] VITALS: BP 130/81
[2018-09-06 09:03] VITALS: BP 108/64
[2018-09-06] MEDS: SERTRALINE HCL 100 MG TABLET PO SCH (09:16)
[2018-09-06] MEDS: ARIPiprazole 15 MG TABLET PO SCH (09:16)
[2018-09-06] MEDS: NYSTATIN 15 GM POWDER BOTTLE TP SCH ×2 (09:16→16:01)
[2018-09-06] MEDS: BENZTROPINE MESYLATE 2 MG TABLET PO SCH ×2 (09:17→16:01)
[2018-09-06] MEDS: LORazepam 2 MG TABLET PO PRN ×2 (11:55→16:01)
[2018-09-06 16:24] VITALS: BP 123/73
[2018-09-07 06:42] VITALS: BP 108/62
[2018-09-07 08:30] VITALS: BP 109/89
[2018-09-07 09:26] LABS: APPEARANCE,URINE TURBID (CLEAR); BILIRUBIN,URINE NEGATIVE (NEGATIVE); GLUCOSE, URINE (UA) NEGATIVE (NEGATIVE); KETONES,URINE NEGATIVE (NEGATIVE); LEUKOCYTE ESTERASE ,URINE NEGATIVE (NEGATIVE); NITRATE,URINE NEGATIVE (NEGATIVE); PROTEIN,URINE NEGATIVE (NEGATIVE); UROBILINOGEN,URINE 0.2 mg/dL (<=1.0)
[2018-09-07 09:51] LABS: OCCULT BLOOD,URINE NEGATIVE (NEGATIVE)
[2018-09-07] MEDS: ARIPiprazole 15 MG TABLET PO SCH (09:58)
[2018-09-07] MEDS: NYSTATIN 15 GM POWDER BOTTLE TP SCH ×2 (09:58→16:26)
[2018-09-07] MEDS: BENZTROPINE MESYLATE 2 MG TABLET PO SCH ×2 (09:58→16:25)
[2018-09-07] MEDS: SERTRALINE HCL 100 MG TABLET PO SCH (09:58)
[2018-09-07] MEDS: LORazepam 2 MG TABLET PO PRN ×2 (12:16→17:25)
[2018-09-07 16:48] VITALS: BP 128/60
[2018-09-08 00:16] VITALS: BP 138/74
[2018-09-08] MEDS: LORazepam 2 MG TABLET PO PRN ×2 (07:22→16:25)
[2018-09-08 08:22] VITALS: BP 120/77
[2018-09-08] MEDS: NYSTATIN 15 GM POWDER BOTTLE TP SCH ×2 (09:00→16:25)
[2018-09-08] MEDS: BENZTROPINE MESYLATE 2 MG TABLET PO SCH ×2 (09:29→16:25)
[2018-09-08] MEDS: SERTRALINE HCL 100 MG TABLET PO SCH (09:29)
[2018-09-08] MEDS: ARIPiprazole 15 MG TABLET PO SCH (09:29)
[2018-09-08 16:56] VITALS: BP 111/74
[2018-09-08] MEDS: ZOLPIDEM TARTRATE 10 MG TABLET PO PRN (20:17)
[2018-09-09 00:26] VITALS: BP 112/72
[2018-09-09] MEDS: SERTRALINE HCL 100 MG TABLET PO SCH (07:52)
[2018-09-09] MEDS: LORazepam 2 MG TABLET PO PRN ×2 (07:53→12:17)
[2018-09-09] MEDS: BENZTROPINE MESYLATE 2 MG TABLET PO SCH (07:53)
[2018-09-09] MEDS: ARIPiprazole 15 MG TABLET PO SCH (07:53)
[2018-09-09] MEDS ORDERED: SERT100T12 PO (07:57)
[2018-09-09] MEDS ORDERED: ARIP15TA2 PO (07:57)
[2018-09-09 08:28] VITALS: BP 121/74
[2018-09-09] MEDS: NYSTATIN 15 GM POWDER BOTTLE TP SCH (10:23)
== END 2018-09-09 13:20 | disposition home or self-care (01) | DRG 750 ==
LOC: B2S 17:17
PROVIDERS: ADMIT Psychiatry & Neurology Psychiatry; ATTEND Psychiatry & Neurology Psychiatry
DX: F25.0 Schizoaffective disorder, bipolar type (principal); R45.851 Suicidal ideations; Z59.0 Homelessness; F41.9 Anxiety disorder, unspecified; I10 Essential (primary) hypertension; J45.909 Unspecified asthma, uncomplicated; F17.200 Nicotine dependence, unspecified, uncomplicated; F12.90 Cannabis use, unspecified, uncomplicated; D72.829 Elevated white blood cell count, unspecified; F19.10 Other psychoactive substance abuse, uncomplicated; B18.2 Chronic viral hepatitis C; R31.9 Hematuria, unspecified; R41.843 Psychomotor deficit; Z88.8 Allergy status to other drugs, medicaments and biological substances; Z91.19 Patient's noncompliance with other medical treatment and regimen; Z91.5 Personal history of self-harm; Z71.6 Tobacco abuse counseling; Z71.51 Drug abuse counseling and surveillance of drug abuser
CPT/HCPCS: 80307; 83036; 84439; 84443; 87081